=== PATIENT | male | born 1970 | race Caucasian/White ===

== ENCOUNTER 2017-04-07 15:10 | Inpatient (IN) | payer OTHER ==
[2017-04-07 15:33] VITALS: BMI 19.3
--- NOTE | 2017-04-07 15:44 | HP ---
COWS - Scale Resting Pulse: 2= [place] 101-120 Sweatin=Flushed/Facial Moisture Restless Observation: 3= Extraneous Movement Pupil Size: 2= Moderately Dilated Bone or Joint Aches: 2= Severe Diffuse Aches Runny Nose/ Eye Tearin= Runny Nose/Eyes GI Upset > 30mins: 3= Vomiting/Diarrhea Tremor Observation: 2= Slight Tremor Visible Yawning Observation: 2= >3x During Session Anxiety or Irritability: 2=Irritable/Anxious Goose Flesh Skin: 0=Smooth Skin COWS Score: 22 Admission ROS S - HPI Chief Complaint: i need help to stop using heroin and cocaine Allergies/Adverse Reactions: Allergies Allergy/AdvReac Type Severity Reaction Status Date / Time No Known Allergies Allergy Verified 04/07/17 15:40 History of Present Illness: this 46 years old transgender with heroin and cocaine dependence,seeking detox, went to [facility] ambulance today, last treatment [facility] 08/31 transgender hiv since 1989 weight loss longest period of sobriety 6 years Exam Limitations: No Limitations - Ebola screening Have you traveled outside of the country in the last 21 days: No Have you had contact with anyone from an Ebola affected area: No Have you been sick,other than usual withdrawal symptoms: No Do you have a fever: No - Review of Systems Constitutional: Chills, Loss of Appetite, Malaise, Night Sweats, Changes in sleep, Weakness, Unintentional Wgt. Loss EENT: reports: Tearing, Nose Congestion Respiratory: reports: No Symptoms reported Cardiac: reports: No Symptoms Reported GI: reports: Blood Streaked Bowels, Diarrhea, Vomiting, Abdominal cramping : reports: No Symptoms Reported Musculoskeletal: reports: Back Pain, Joint Pain, Muscle Pain, Joint Stiffness Integumentary: reports: Dryness Neuro: reports: Headache, Tremors Endocrine: reports: No Symptoms Reported Hematology: reports: Anemia Psychiatric: reports: Anxious, Depressed (insomnia) Patient History - Patient Medical History Hx Anemia: Yes (taking iron) Hx Asthma: No Hx Chronic Obstructive Pulmonary Disease (COPD): No Hx Cancer: No Hx Cardiac Disorders: No Hx Congestive Heart Failure: No Hx Hypertension: No Hx Hypercholesterolemia: No Hx Pacemaker: No HX Cerebrovascular Accident: No Hx Seizures: No Hx Dementia: No Hx Diabetes: No Hx Gastrointestinal Disorders: No Hx Liver Disease: No Hx Genitourinary Disorders: No Hx Sexually Transmitted Disorders: No Hx Renal Disease (ESRD): No Hx Thyroid Disease: No Hx Human Immunodeficiency Virus (HIV): Yes (since 1989 non compliance did not take medication for 2 months) Hx Hepatitis C: No Hx Depression: Yes (anxiety) Hx Suicide Attempt: No Hx Bipolar Disorder: No Hx Schizophrenia: No Other Medical History: no suicidal,no homicidal,neuropathy - Patient Surgical History Past Surgical History: No - PPD History Previous Implant?: Yes Documented Results: Positive w/o proof Implanted On Prior R Admission?: No PPD to be Administered?: No - Smoking Cessation Smoking history: Current every day smoker Have you smoked in the past 12 months: Yes Aproximately how many cigarettes per day: 20 Hx Chewing Tobacco Use: No Initiated information on smoking cessation: Yes 'Breaking Loose' booklet given: 04/07/17 - Substance & Tx. History Hx Alcohol Use: No Hx Substance Use: Yes Substance Use Type: Cocaine, Heroin Hx Substance [facility] - Substances Abused Heroin Route: Inhalation Frequency: Daily Amount used: 5 bags Age of first use: 46 Date of Last Use: 04/06/17 Cocaine Route: Smoking Frequency: Daily Amount used: 100$ Age of first use: 40 Date of Last Use: 04/06/17 Family Disease History - Family Disease History Family History: Denies Admission Physical Exam [facility] - Vital Signs Vital Signs: Vital Signs - 24 hr 04/07/17 15:28 Temperature 97.6 F Pulse Rate 84 Respiratory 20 Rate Blood Pressure 152/101 - Physical General Appearance: Yes: Moderate Distress, Tremorous, Irritable, Sweating, Anxious HEENTM: Yes: Hearing grossly Normal, Normal ENT Inspection, ELROY, Pharynx Normal Respiratory: Yes: Lungs Clear, Normal Breath Sounds, No Respiratory Distress Neck: Yes: Within Normal Limits, Supple, Trachea in good position Breast: Yes: Breast Exam Deferred Cardiology: Yes: Tachycardia Abdominal: Yes: Normal Bowel Sounds, Non Tender, Soft Genitourinary: Yes: Within Normal Limits Back: Yes: Muscle Spasm Musculoskeletal: Yes: full range of Motion, Back pain, Muscle Pain, Muscle weakness Extremities: Yes: Tremors Neurological: Yes: tip mender II-XII NML intact, Alert, Motor Strength 5/5, Normal Mood /Affect Integumentary: Yes: Dry Lymphatic: Yes: Within Normal Limits - Diagnostic (1) Opioid dependence with withdrawal Current Visit: Yes Status: Acute (2) Cocaine dependence Current Visit: Yes Status: Acute (3) HIV (human immunodeficiency virus infection) Current Visit: Yes Status: Acute (4) Anxiety and depression Current Visit: Yes Status: Acute (5) Anemia Current Visit: Yes Status: Acute (6) Neuropathy Current Visit: Yes Status: Acute (7) Positive PPD, treated Current Visit: Yes Status: Acute (8) Weight loss Current Visit: Yes Status: Acute (9) Transgender Current Visit: Yes Status: Acute Cleared for Admission [facility] - Detox or Rehab [facility] Level of Care: Medically Managed Detox Regimen/Protocol: Methadone [facility] Breath Alcohol Content Breath Alcohol Content: 0 Urine Drug Screen - Results Drug Screen Negative: No Urine Drug Screen Results: GIOVANY-Cocaine, OPI-Opiates
[2017-04-07] MEDS ORDERED: IBUPROFEN 400 MG TABLET (FP) PO PRN (16:02)
[2017-04-07] MEDS ORDERED: ACETAMINOPHEN 325 MG TABLET (FP) PO PRN (16:02)
[2017-04-07] MEDS ORDERED: MAG HYDROX/AL HYDROX/SIMETH 30 ML UNIT-DOSE CUP PO PRN (16:02)
[2017-04-07] MEDS ORDERED: MAGNESIUM CITRATE 300 ML BOTTLE PO PRN (16:02)
[2017-04-07] MEDS ORDERED: MENTHOL/PHENOL 1 EACH UD MM PRN (16:02)
[2017-04-07] MEDS ORDERED: NICOTINE POLACRILEX 2 MG GUM BC PRN (16:02)
[2017-04-07] MEDS ORDERED: LOPERAMIDE HCL 2 MG CAPSULE PO PRN (16:02)
[2017-04-07] MEDS ORDERED: METHADONE HCL 10 MG TABLET (FOR DETOX USE ONLY) PO ONE ×2 (16:02→23:00)
[2017-04-07] MEDS ORDERED: MAGNESIUM HYDROX 2400MG/30ML ORAL SUSPENSION 30 ML CUP PO PRN (16:02)
[2017-04-07] MEDS ORDERED: P-EPHED 60MG/TRIPROLIDI 2.5MG TABLET PO PRN (16:02)
[2017-04-07] MEDS: diazePAM 5 MG TABLET PO PRN (17:42)
[2017-04-07] MEDS: NICOTINE 21 MG/24 HOURS TOPICAL PATCH TD SCH (17:46)
[2017-04-07] MEDS: GABAPENTIN 300 MG CAPSULE (FP) PO SCH (22:27)
[2017-04-07] MEDS: THIAMINE HCL 100 MG TABLET (FP) PO SCH (22:27)
[2017-04-07] MEDS: diphenhydrAMINE HCL 50 MG CAPSULE PO PRN (22:27)
--- NOTE | 2017-04-08 09:20 | CONSULT ---
[facility] Psychiatric Consult - Data Date of interview: 04/08/17 Admission source: [facility] Identifying data: This is 46 years old transgender male with no psychiatric hospitalization history intoxicated wioth: Opioids and Cocaine Substance Abuse History: - Smoking Cessation. Smoking history: Current every day smoker. Have you smoked in the past 12 months: Yes. Aproximately how many cigarettes per day: 20. Hx Chewing Tobacco Use: No. Initiated information on smoking cessation: Yes. 'Breaking Loose' booklet given: 04/07/17. - Substance & Tx. History. Hx Alcohol Use: No. Hx Substance Use: Yes. Substance Use Type : Cocaine, Heroin. Hx Substance Use Treatment: Yes ([facility] 08/31). - Substances Abused. Heroin. Route: Inhalation. Frequency: Daily. Amount used: 5 bags. Age of first use: 46. Date of Last Use: 04/06/17. Cocaine. Route: Smoking. Frequency: Daily. Amount used: 100$. Age of first use: 40. Date of Last Use: 04/06/17 Medical History: Anemia history, HIV, Neuropathy, PPD+ hisotry, Transgender person, Weight loss history Psychiatric History: Patient reports history of anxiety and depression, reports taking prior to admission: Trazodone 150mg po qhs. Gabapentin 300mg po tid. Abilify 10mg poqd Physical/Sexual Abuse/Trauma History: Denies, unclear Additional Comment: Trazodone 150mg po qhs. Gabapentin 300mg po tid. Abilify 10mg poqd Mental Status Exam - Mental Status Exam Alert and Oriented to: Person Cognitive Function: Fair Patient Appearance: Unkempt Mood: Sad Affect: Flat Patient Behavior: Sedated Speech Pattern: Delayed Voice Loudness: Mildly Soft/Quiet Thought Process: Circumstantial Thought Disorder: Being Controlled Hallucinations: Denies Suicidal Ideation: Denies Homicidal Ideation: Denies Insight/Judgement: Fair Sleep: Difficulty falling asleep Appetite: Weight loss Muscle strength/Tone: Mild Hypotonicity Gait/Station: Shuffling Additional Comments: Trazodone 150mg po qhs. Gabapentin 300mg po tid. Abilify 10mg poqd Psychiatric Findings - Problem List (Aldrich 1, 2,3) (1) Anxiety and depression Current Visit: Yes Status: Acute (2) Opioid dependence with withdrawal Current Visit: Yes Status: Acute (3) Transgender Current Visit: Yes Status: Acute (4) Drug-induced mood disorder Current Visit: Yes Status: Acute - Initial Treatment Plan Initial Treatment Plan: Trazodone 150mg po qhs. Gabapentin 300mg po tid. Abilify 10mg poqd
[2017-04-08 09:52] LABS: URINE APPEARANCE CLEAR; URINE BILIRUBIN NEGATIVE (NEGATIVE); URINE BLOOD 2+ (NEGATIVE); URINE COLOR LTYELLOW; URINE GLUCOSE (UA) NEGATIVE (NEGATIVE); URINE KETONE NEGATIVE (NEGATIVE); URINE LEUK ESTERASE TRACE (NEGATIVE); URINE NITRITE NEGATIVE (NEGATIVE); URINE PROTEIN NEGATIVE (NEGATIVE); URINE UROBILINOGEN NEGATIVE mg/dL (0.2-1.0)
[2017-04-08 09:54] LABS: MCH 29.9 pg (25.7-33.7); MCHC 33.5 g/dl (32.0-35.9); MEAN CELL VOLUME 89.2 fl (80-96); MEAN PLT VOLUME 10.8 fl (7.5-11.1); PLATELET COUNT 142 K/MM3 (134-434); RDW 13.3 % (11.9-15.9); WHITE BLOOD COUNT 5.3 K/mm3 (4.0-10.0)
[2017-04-08 09:55] LABS: CALCIUM OXALATE CRYSTALS FEW /hpf (NONE SEEN); URINE BACTERIA RARE /hpf (NONE SEEN); URINE MUCUS RARE; URINE RBC 21 /hpf (0-3); URINE WBC 12 /hpf (3-5)
[2017-04-08] MEDS ORDERED: METHADONE HCL 10 MG TABLET (FOR DETOX USE ONLY) PO ONE (10:00)
[2017-04-08 10:01] LABS: ANION GAP 8 (8-16); CALCIUM 8.6 mg/dL (8.5-10.1); CO2 28 mmol/L (21-32); GLUCOSE,RANDOM 91 mg/dL (74-106); SGOT/AST 18 U/L (15-37); SGPT/ALT 31 U/L (12-78)
[2017-04-08] MEDS ORDERED: ALBUTEROL SO4 2.5/IPRATROPIUM 0.5 INH SOL 3 ML VIAL.NEB. NEB ONE (10:01)
[2017-04-08 10:03] LABS: ALK PHOS 76 U/L (45-117); BILIRUBIN,TOTAL 0.1 mg/dL (0.2-1.0); CREATININE 0.9 mg/dL (0.7-1.3); TOT PROT 6.2 g/dl (6.4-8.2)
[2017-04-08] MEDS ORDERED: AZITHROMYCIN 250 MG TABLET (FP) PO ONE (10:05)
--- NOTE | 2017-04-08 10:13 | PN ---
[facility] COWS - Scale Resting Pulse: 2= [place] 101-120 Sweatin=Flushed/Facial Moisture Restless Observation: 1= Difficult to Sit Still Pupil Size: 0= Normal to Room Light Bone or Joint Aches: 2= Severe Diffuse Aches Runny Nose/ Eye Tearin= Runny Nose/Eyes GI Upset > 30mins: 1= Stomach Cramp Tremor Observation of Outstretched Hands: 2= Slight Tremor Visible Yawning Observation: 2= >3x During Session Anxiety or Irritability: 2=Irritable/Anxious Goose Flesh Skin: 3=Piloerection COWS Score: 19 S Progress Note (SOAP) Subjective: nasal congestion chest congestion sweats headache body aches irritable Objective: 04/08/17 10:14 Vital Signs Temperature 98.6 F 04/08/17 10:00 Pulse Rate 114 H 04/08/17 10:00 Respiratory Rate 18 04/08/17 10:00 Blood Pressure 149/98 04/08/17 10:00 O2 Sat by Pulse Oximetry (%) Laboratory Tests 04/08/17 04/08/17 04/08/17 06:30 06:30 06:30 WBC 5.3 RBC 4.42 Hgb 13.2 Hct 39.4 MCV 89.2 MCH 29.9 MCHC 33.5 RDW 13.3 Plt Count 142 MPV 10.8 Sodium 143 Potassium 3.8 Chloride 107 Carbon Dioxide 28 Anion Gap 8 BUN 23 H Creatinine 0.9 Creat Clearance w eGFR > 60 Random Glucose 91 Calcium 8.6 Total Bilirubin 0.1 L AST 18 ALT 31 Alkaline Phosphatase 76 Total Protein 6.2 L Albumin 3.0 L Urine Color Ltyellow Urine Appearance Clear Urine pH 6.0 Urine Protein Negative Urine Glucose (UA) Negative Urine Ketones Negative Urine Blood 2+ H Urine Nitrite Negative Urine Bilirubin Negative Urine Urobilinogen Negative Ur Leukocyte Esterase Trace Urine RBC 21 Urine WBC 12 Ur Epithelial Cells Rare Calcium Oxalate Crystal Few Urine Bacteria Rare Urine Mucus Rare awake/alert ambulating no acute distress Assessment: 04/08/17 10:14 withdrawal sx Plan: continue detox increase fluids z pack x 4 days duoneb prn chest x-ray pending
[2017-04-08] MEDS: PRENATAL VITAMINS W/ FOLIC ACID TABLET (FP) PO SCH (10:23)
[2017-04-08] MEDS: ALBUTEROL SO4 2.5/IPRATROPIUM 0.5 INH SOL 3 ML VIAL.NEB. NEB PRN (10:23)
[2017-04-08] MEDS: CYCLOBENZAPRINE HCL 10 MG TABLET (FP) PO PRN ×2 (10:23→22:16)
[2017-04-08] MEDS: ARIPiprazole 10 MG TABLET PO SCH (10:24)
[2017-04-08] MEDS: GABAPENTIN 300 MG CAPSULE (FP) PO SCH ×2 (10:25→22:16)
[2017-04-08] MEDS: diazePAM 5 MG TABLET PO PRN ×2 (10:25→22:16)
[2017-04-08] MEDS: NICOTINE 21 MG/24 HOURS TOPICAL PATCH TD SCH (10:26)
--- NOTE | 2017-04-08 10:50 | EKG ---
Test Reason : Blood Pressure : / mmHG Vent. Rate : 076 BPM Atrial Rate : 076 BPM P-R Int : 152 ms QRS Dur : 124 ms QT Int : 396 ms P-R-T Axes : 066 070 070 degrees QTc Int : 445 ms NORMAL SINUS RHYTHM RSR' OR QR PATTERN IN V1 SUGGESTS RIGHT VENTRICULAR CONDUCTION DELAY BORDERLINE ECG NO PREVIOUS ECGS AVAILABLE Confirmed by EDDIE COSME MD ([id number]) on 04/08/2017 10:49:34 AM Referred By: Confirmed By:EDDIE COSME MD
[2017-04-08] MEDS: SODIUM CHLORIDE NASAL SPRAY 44 ML BOTTLE NS PRN (22:16)
[2017-04-08] MEDS: THIAMINE HCL 100 MG TABLET (FP) PO SCH (22:17)
[2017-04-08] MEDS: traZODone HCL 50 MG TABLET (FP) PO SCH (22:50)
[2017-04-09] MEDS ORDERED: METHADONE HCL 5 MG TABLET (FOR DETOX USE ONLY) PO ONE (10:00)
[2017-04-09] MEDS: GABAPENTIN 300 MG CAPSULE (FP) PO SCH ×2 (10:52→22:23)
[2017-04-09] MEDS: ARIPiprazole 10 MG TABLET PO SCH (10:52)
[2017-04-09] MEDS: PRENATAL VITAMINS W/ FOLIC ACID TABLET (FP) PO SCH (10:52)
[2017-04-09] MEDS: AZITHROMYCIN 250 MG TABLET (FP) PO SCH (10:53)
[2017-04-09] MEDS: NICOTINE 21 MG/24 HOURS TOPICAL PATCH TD SCH (10:54)
--- NOTE | 2017-04-09 11:07 | PN ---
[facility] COWS - Scale Resting Pulse: 1= [place] 81-100 Sweatin=Flushed/Facial Moisture Restless Observation: 1= Difficult to Sit Still Pupil Size: 0= Normal to Room Light Bone or Joint Aches: 2= Severe Diffuse Aches Runny Nose/ Eye Tearin= Nasal Congestion GI Upset > 30mins: 0= None Tremor Observation of Outstretched Hands: 2= Slight Tremor Visible Yawning Observation: 0= None Anxiety or Irritability: 2=Irritable/Anxious Goose Flesh Skin: 0=Smooth Skin COWS Score: 11 S Progress Note (SOAP) Subjective: agitation sweats cough body aches Objective: 04/09/17 11:05 Vital Signs Temperature 97.9 F 04/09/17 09:48 Pulse Rate 100 H 04/09/17 09:48 Respiratory Rate 20 04/09/17 09:48 Blood Pressure 142/80 04/09/17 09:48 O2 Sat by Pulse Oximetry (%) Laboratory Tests 04/08/17 04/08/17 04/08/17 06:30 06:30 06:30 WBC 5.3 RBC 4.42 Hgb 13.2 Hct 39.4 MCV 89.2 MCH 29.9 MCHC 33.5 RDW 13.3 Plt Count 142 MPV 10.8 Sodium 143 Potassium 3.8 Chloride 107 Carbon Dioxide 28 Anion Gap 8 BUN 23 H Creatinine 0.9 Creat Clearance w eGFR > 60 Random Glucose 91 Calcium 8.6 Total Bilirubin 0.1 L AST 18 ALT 31 Alkaline Phosphatase 76 Total Protein 6.2 L Albumin 3.0 L Urine Color Urine Appearance Urine pH Ur Specific [place] Urine Protein Urine Glucose (UA) Urine Ketones Urine Blood Urine Nitrite Urine Bilirubin Urine Urobilinogen Ur Leukocyte Esterase Urine RBC Urine WBC Ur Epithelial Cells Calcium Oxalate Crystal Urine Bacteria Urine Mucus RPR Titer Reactive 1:2 H 04/08/17 06:30 WBC RBC Hgb Hct MCV MCH MCHC RDW Plt Count MPV Sodium Potassium Chloride Carbon Dioxide Anion Gap BUN Creatinine Creat Clearance w eGFR Random Glucose Calcium Total Bilirubin AST ALT Alkaline Phosphatase Total Protein Albumin Urine Color Ltyellow Urine Appearance Clear Urine pH 6.0 Ur Specific [place] 1.020 Urine Protein Negative Urine Glucose (UA) Negative Urine Ketones Negative Urine Blood 2+ H Urine Nitrite Negative Urine Bilirubin Negative Urine Urobilinogen Negative Ur Leukocyte Esterase Trace Urine RBC 21 Urine WBC 12 Ur Epithelial Cells Rare Calcium Oxalate Crystal Few Urine Bacteria Rare Urine Mucus Rare RPR Titer chest x-ray result report shows no infiltrate no PNA awake/alert ambulating no acute distress Assessment: 04/09/17 11:06 withdrawal sx Plan: continue detox increase fluids continue z-sterling duoneb prn robutussin prn
[2017-04-09] MEDS: diazePAM 5 MG TABLET PO PRN ×2 (17:35→22:22)
[2017-04-09] MEDS: SODIUM CHLORIDE NASAL SPRAY 44 ML BOTTLE NS PRN (22:22)
[2017-04-09] MEDS: CYCLOBENZAPRINE HCL 10 MG TABLET (FP) PO PRN (22:23)
[2017-04-09] MEDS: THIAMINE HCL 100 MG TABLET (FP) PO SCH (22:23)
[2017-04-09] MEDS: traZODone HCL 50 MG TABLET (FP) PO SCH (22:23)
[2017-04-10] MEDS: guaiFENesin/D-METHORPHAN HB 10 ML UNIT-DOSE CUPS PO PRN ×2 (08:55→22:16)
[2017-04-10] MEDS ORDERED: METHADONE HCL 5 MG TABLET (FOR DETOX USE ONLY) PO ONE (10:00)
[2017-04-10] MEDS: ARIPiprazole 10 MG TABLET PO SCH (10:39)
[2017-04-10] MEDS: AZITHROMYCIN 250 MG TABLET (FP) PO SCH (10:39)
[2017-04-10] MEDS: GABAPENTIN 300 MG CAPSULE (FP) PO SCH ×2 (10:39→22:15)
[2017-04-10] MEDS: PRENATAL VITAMINS W/ FOLIC ACID TABLET (FP) PO SCH (10:39)
[2017-04-10] MEDS: NICOTINE 21 MG/24 HOURS TOPICAL PATCH TD SCH (10:40)
[2017-04-10] MEDS: diazePAM 5 MG TABLET PO PRN (10:42)
--- NOTE | 2017-04-10 10:53 | PN ---
BHS Progress Note (SOAP) Subjective: cough sweats Objective: 04/10/17 10:52 Vital Signs Temperature 97.9 F 04/10/17 10:00 Pulse Rate 101 H 04/10/17 10:00 Respiratory Rate 20 04/10/17 10:00 Blood Pressure 115/82 04/10/17 10:00 O2 Sat by Pulse Oximetry (%) awake/alert ambulating no acute distress Assessment: 04/10/17 10:53 withdrawal sx Plan: continue detox increase fluids robutussin prn
[2017-04-10] MEDS: ALBUTEROL SO4 2.5/IPRATROPIUM 0.5 INH SOL 3 ML VIAL.NEB. NEB PRN ×2 (12:28→20:58)
[2017-04-10] MEDS: THIAMINE HCL 100 MG TABLET (FP) PO SCH (22:15)
[2017-04-10] MEDS: traZODone HCL 50 MG TABLET (FP) PO SCH (22:15)
[2017-04-10] MEDS: diphenhydrAMINE HCL 50 MG CAPSULE PO PRN (22:16)
[2017-04-11] MEDS ORDERED: METHADONE HCL 10 MG TABLET (FOR DETOX USE ONLY) PO ONE (10:00)
[2017-04-11] MEDS: AZITHROMYCIN 250 MG TABLET (FP) PO SCH (10:57)
[2017-04-11] MEDS: ARIPiprazole 10 MG TABLET PO SCH (10:57)
[2017-04-11] MEDS: GABAPENTIN 300 MG CAPSULE (FP) PO SCH ×2 (10:58→22:23)
[2017-04-11] MEDS: hydrOXYzine PAMOATE 50 MG CAPSULE (FP) PO PRN ×2 (10:58→15:40)
[2017-04-11] MEDS: PRENATAL VITAMINS W/ FOLIC ACID TABLET (FP) PO SCH (10:58)
[2017-04-11] MEDS: NICOTINE 21 MG/24 HOURS TOPICAL PATCH TD SCH (10:59)
[2017-04-11] MEDS: SODIUM CHLORIDE NASAL SPRAY 44 ML BOTTLE NS PRN (11:03)
--- NOTE | 2017-04-11 12:28 | PN ---
BHS Progress Note (SOAP) Subjective: Vomiting, Tremors, Diarrhea, Interrupted sleep, H/A, Lower Back Ache, Body Aches. Pt. also reporting discomfort in chest (sternal area). Pt. notes that chest pain has been occurring intermittently for the last several months. Objective: PT. A & O X 3, OBSERVED AMBULATING ON UNIT. NO ACUTE DISTRESS. 04/11/17 12:24 Vital Signs Temperature 97.9 F 04/11/17 10:00 Pulse Rate 119 H 04/11/17 10:00 Respiratory Rate 20 04/11/17 10:00 Blood Pressure 120/81 04/11/17 10:00 O2 Sat by Pulse Oximetry (%) Laboratory Tests 04/08/17 04/08/17 04/08/17 06:30 06:30 06:30 WBC 5.3 RBC 4.42 Hgb 13.2 Hct 39.4 MCV 89.2 MCH 29.9 MCHC 33.5 RDW 13.3 Plt Count 142 MPV 10.8 Sodium 143 Potassium 3.8 Chloride 107 Carbon Dioxide 28 Anion Gap 8 BUN 23 H Creatinine 0.9 Creat Clearance w eGFR > 60 Random Glucose 91 Calcium 8.6 Total Bilirubin 0.1 L AST 18 ALT 31 Alkaline Phosphatase 76 Total Protein 6.2 L Albumin 3.0 L Urine Color Urine Appearance Urine pH Ur Specific [place] Urine Protein Urine Glucose (UA) Urine Ketones Urine Blood Urine Nitrite Urine Bilirubin Urine Urobilinogen Ur Leukocyte Esterase Urine RBC Urine WBC Ur Epithelial Cells Calcium Oxalate Crystal Urine Bacteria Urine Mucus RPR Titer Reactive 1:2 H T.pallidum Ab (MHA) Reactive 04/08/17 06:30 WBC RBC Hgb Hct MCV MCH MCHC RDW Plt Count MPV Sodium Potassium Chloride Carbon Dioxide Anion Gap BUN Creatinine Creat Clearance w eGFR Random Glucose Calcium Total Bilirubin AST ALT Alkaline Phosphatase Total Protein Albumin Urine Color Ltyellow Urine Appearance Clear Urine pH 6.0 Ur Specific [place] 1.020 Urine Protein Negative Urine Glucose (UA) Negative Urine Ketones Negative Urine Blood 2+ H Urine Nitrite Negative Urine Bilirubin Negative Urine Urobilinogen Negative Ur Leukocyte Esterase Trace Urine RBC 21 Urine WBC 12 Ur Epithelial Cells Rare Calcium Oxalate Crystal Few Urine Bacteria Rare Urine Mucus Rare RPR Titer T.pallidum Ab (MHA) LABS NOTED. Assessment: 04/11/17 12:24 WITHDRAWAL SYMPTOMS. Plan: CONTINUE DETOX. REPEAT ECG ORDERED. RESULTS NOTED. PATIENT REPORTS THAT SHE DOES CURRENTLY HAVE A PRIMARY CARE MEDICAL PROVIDER ([facility], [place], [place]) WHOM SHE CAN SEE AFTER DISCHARGE FROM DETOX. PATIENT ADVISED TO FOLLOW-UP WITH TEARER AT [facility] FOR FOLLOW-UP MEDICAL CARE AND FOR FURTHER EVALUATION.
[2017-04-11] MEDS: THIAMINE HCL 100 MG TABLET (FP) PO SCH (22:22)
[2017-04-11] MEDS: traZODone HCL 50 MG TABLET (FP) PO SCH (22:22)
[2017-04-12] MEDS ORDERED: METHADONE HCL 5 MG TABLET (FOR DETOX USE ONLY) PO ONE (06:00)
--- NOTE | 2017-04-12 09:26 | EKG ---
Test Reason : Blood Pressure : / mmHG Vent. Rate : 108 BPM Atrial Rate : 108 BPM P-R Int : 138 ms QRS Dur : 112 ms QT Int : 356 ms P-R-T Axes : 068 068 066 degrees QTc Int : 477 ms SINUS TACHYCARDIA INCOMPLETE RIGHT BUNDLE BRANCH BLOCK WHEN COMPARED WITH ECG OF 07-APR-2017 16:50, NO SIGNIFICANT CHANGE WAS FOUND Confirmed by ANA PAULA BARAHONA MD ([id number]) on 04/12/2017 9:26:12 AM Referred By: Pablo Smith Confirmed By:ANA PAULA BARAHONA MD
[2017-04-12 10:33] VITALS: BP 133/86; PULSE 114; TEMP 98.2
--- NOTE | 2017-04-12 10:36 | DS ---
[facility] Detox Discharge Summary Admission Date: 04/07/17 Discharge Date: 04/12/17 - History Present History: Cocaine Dependence, Opioid Dependence - Physical Exam Results Vital Signs: Vital Signs Temperature 98.2 F 04/12/17 10:00 Pulse Rate 114 H 04/12/17 10:00 Respiratory Rate 20 04/12/17 10:00 Blood Pressure 133/86 04/12/17 10:00 O2 Sat by Pulse Oximetry (%) - Treatment Hospital Course: Detox Protocol Followed, Detoxed Safely, Responded well, Discharged Condition Good, Rehab Referral Accepted - Medication Discharge Medications: Ambulatory Orders Aripiprazole [Abilify] 10 mg PO 04/07/17 Gabapentin [Neurontin -] 04/07/17 Trazodone HCl [Desyrel -] 150 mg PO HS 04/07/17 Aripiprazole [Abilify -] 10 mg PO DAILY #30 tablet 04/08/17 Trazodone HCl [Desyrel -] 150 mg PO HS #30 tablet 04/08/17 - Diagnosis (1) Anemia Current Visit: Yes Status: Chronic (2) Anxiety and depression Current Visit: Yes Status: Acute (3) Cocaine dependence Current Visit: Yes Status: Chronic Qualifiers: Substance use status: uncomplicated Qualified Code(s): F14.20 - Cocaine dependence, uncomplicated (4) Drug-induced mood disorder Current Visit: Yes Status: Acute (5) HIV (human immunodeficiency virus infection) Current Visit: Yes Status: Chronic (6) Neuropathy Current Visit: Yes Status: Chronic (7) Opioid dependence with withdrawal Current Visit: Yes Status: Chronic (8) Positive PPD, treated Current Visit: Yes Status: Acute (9) Transgender Current Visit: Yes Status: Chronic (10) Weight loss Current Visit: Yes Status: Suspected - AMA Did Patient Leave Against Medical Advice: No
[2017-04-12] MEDS: PRENATAL VITAMINS W/ FOLIC ACID TABLET (FP) PO SCH (12:33)
[2017-04-12] MEDS: GABAPENTIN 300 MG CAPSULE (FP) PO SCH (12:33)
[2017-04-12] MEDS: NICOTINE 21 MG/24 HOURS TOPICAL PATCH TD SCH (12:33)
[2017-04-12] MEDS: ARIPiprazole 10 MG TABLET PO SCH (12:33)
== END 2017-04-12 12:30 | disposition home or self-care (01) | DRG 773 ==
LOC: YASAS 15:10 → EDBD 15:10 → Y6N 17:08
PROVIDERS: ADMIT Internal Medicine; ATTEND Internal Medicine
PROC: HZ2ZZZZ Detoxification Services for Substance Abuse Treatment (ICD-10-PCS; principal; 2017-04-12)
DX: F11.23 Opioid dependence with withdrawal (principal); F14.20 Cocaine dependence, uncomplicated; F41.8 Other specified anxiety disorders; F19.24 Other psychoactive substance dependence with psychoactive substance-induced mood disorder; G62.9 Polyneuropathy, unspecified; R76.11 Nonspecific reaction to tuberculin skin test without active tuberculosis; Z21 Asymptomatic human immunodeficiency virus [HIV] infection status; F64.8 Other gender identity disorders; R64 Cachexia; Z68.1 Body mass index [BMI] 19.9 or less, adult
CPT/HCPCS: 36415; 71020-TC; 80053; 81003; 81015; 85027; 86593; 86780; 93005; 93010; 94640